=== PATIENT | female | born 1975 | race Caucasian/White ===

== ENCOUNTER 2019-08-31 16:01 | Emergency (ER) | payer SELFPAY ==
[~2019-08-31] VITALS: Ht 152.4 cm; Wt 68.2 kg
[2019-08-31 16:32] VITALS: BP 118/72
--- NOTE | 2019-08-31 16:38 | NUR ---
PT AMBULATED TO BED 11 WITH STEADY GAIT.
--- NOTE | 2019-08-31 16:40 | NUR ---
44 Y/O FEMALE C/O FEVER, SORE THROAT, AND COUGH X 3 DAYS. PT STATES PRODUCTIVE COUGH WITH GREEN SPUTUM. 10/10 SHARP PAIN TO THROAT, STATES INCREASED PAIN WITH SWALLOWING. BILATERAL EAR PAIN, DENIES DRAINAGE. +NAUSEA, DENIES VOMITING/DIARRHEA. RR EVEN AND UNLABORED, NO ACCESSORY MUSCLE USE. STATES SHE TOOK NYQUIL AT 1000 WITH NO RELIEF. LMP 07/30/2019. VSS. FAMILY AT BEDSIDE MEDHX: DENIES ALLERGIES: STEVE
--- NOTE | 2019-08-31 16:50 | NUR ---
DR FIELD AT BEDSIDE EXAMINING PT
[2019-08-31] MEDS ORDERED: PROMETH/CODEINE 6.25-10MG/5ML 5 ML UDC PO ONE (16:55)
[2019-08-31] MEDS ORDERED: KETOROLAC 60 MG/2 ML VIAL IM ONE (16:55)
--- NOTE | 2019-08-31 16:59 | NUR ---
INFLUENZA SWAB COLLECTED.
--- NOTE | 2019-08-31 17:04 | NUR ---
2ND PROMETHAZINE PULLED FROM [email or web address]. STATED TO ONLY PULL ONE, SECOND ONE PULLED FROM MEDICATION DISPENSER. PT RECEIVED FULL DOSE.
--- NOTE | 2019-08-31 17:26 | NUR ---
DECREASE IN PAIN AFTER TORADOL IM GIVEN. 11/23 PAIN TO THROAT.
[2019-08-31 18:03] VITALS: BP 120/73
--- NOTE | 2019-08-31 18:04 | NUR ---
Patient discharged with v/s stable. Written and verbal after care instructions given and explained. Patient alert, oriented and verbalized understanding of instructions. Ambulatory with steady gait. All questions addressed prior to discharge. ID band removed. Patient advised to follow up with PMD. Rx of PROMETHAZINE WITH CODEINE, TAMIFLU, AND MOTRIN given. Patient educated on indication of medication including possible reaction and side effects. Opportunity to ask questions provided and answered.
== END 2019-08-31 18:04 | disposition home or self-care (01) ==
LOC: MED 16:01
DX: J10.1 Influenza due to other identified influenza virus with other respiratory manifestations (principal); F17.210 Nicotine dependence, cigarettes, uncomplicated
CPT/HCPCS: 71045; 87804; 96372; 99284; J1885; Q0092

== ENCOUNTER 2022-08-07 03:43 | Emergency (ER) | payer BC, MEDICAID ==
[~2022-08-07] VITALS: Ht 152.4 cm; Wt 74.8 kg
[2022-08-07 03:54] VITALS: BP 113/74
--- NOTE | 2022-08-07 03:59 | NUR ---
TO LOBBY A/W BED AMBULATORY
--- NOTE | 2022-08-07 04:43 | NUR ---
Dr. Shrestha examining patient.
[2022-08-07] MEDS ORDERED: AMOX1TAB8 PO (04:46)
[2022-08-07 04:48] VITALS: BP 113/74
--- NOTE | 2022-08-07 04:48 | NUR ---
D/C BY .Patient discharged with v/s stable. Written and verbal after care instructions given and explained. Patient alert, oriented and verbalized understanding of instructions. Ambulatory with steady gait. All questions addressed prior to discharge. ID band removed. Patient advised to follow up with PMD. Rx of AMOX-CLAV given. Patient educated on indication of medication including possible reaction and side effects. Opportunity to ask questions provided and answered.
== END 2022-08-07 04:49 | disposition home or self-care (01) ==
LOC: MED 03:43
DX: J20.8 Acute bronchitis due to other specified organisms (principal); B96.89 Other specified bacterial agents as the cause of diseases classified elsewhere; Z79.899 Other long term (current) drug therapy
CPT/HCPCS: 99283

== ENCOUNTER 2022-10-23 10:43 | Emergency (ER) | payer MEDICAID ==
[~2022-10-23] VITALS: Ht 157.5 cm; Wt 74.8 kg
[~2022-10-23 10:43] MED LIST: AMOX1TAB8 PO
[2022-10-23 11:12] VITALS: BP 123/79
--- NOTE | 2022-10-23 12:04 | NUR ---
47 Y/O FEMALE BIB SELF C/O VAGINAL ITCHING AND BURNING URINATION S/P HAVING UNRPOTECTED SEX WITH A NEW PARTNERXLAST MONDAY. DENIES ANY WARTS OR VESICLES,STATES CLEAR VAGINAL DISCHARGE, DENIES ANY VAGINAL BLEEDING OR PAIN. NO OTHER SEXUAL CONTACT. NKA PMH: DENIES
--- NOTE | 2022-10-23 12:04 | NUR ---
WALKED TO BED 12
[2022-10-23 12:07] LABS: APPEARANCE,URINE CLEAR (CLEAR); BILIRUBIN,URINE NEGATIVE (NEGATIVE); BLOOD, URINE NEGATIVE (NEGATIVE); COLOR,URINE YELLOW (YELLOW); LEUKOCYTE ESTERASE ,URINE 2+ (NEGATIVE); NITRITE, URINE NEGATIVE (NEGATIVE); PH,URINE 5.5 (5.0-9.0); UGLUCOSE NEGATIVE (NEGATIVE)
[2022-10-23 12:24] LABS: RBC,URINE 0-5 /HPF (0-5)
[2022-10-23 12:36] LABS: BASOPHILS % (AUTO) 0.6 % (0.0-2.0); EOSINOPHILS % (AUTO) 0.5 % (0.0-4.0); HEMATOCRIT 40.8 % (36-48); HEMOGLOBIN 13.8 g/dL (12.0-16.0); LYMPHOCYTES # (AUTO) 1.8 K/uL (2.5-16.5); LYMPHOCYTES % (AUTO) 20.8 % (20.5-51.1); MEAN CORPUSCULAR HEMOGLOBIN 30 pg (27-31); MEAN CORPUSCULAR HGB CONC 34 g/dL (33-37); MEAN CORPUSCULAR VOLUME 88.8 fL (80-94); MONOCYTES # (AUTO) 0.7 K/uL (0.8-1.0); MONOCYTES % (AUTO) 7.8 % (1.7-9.3); NEUTROPHILS # (AUTO) 5.9 K/uL (1.8-7.7); NEUTROPHILS % (AUTO) 70.3 % (42.2-75.2); PLATELET COUNT (AUTO) 333 K/uL (140-450); RED BLOOD CELL COUNT(AUTO) 4.59 MIL/uL (4.20-5.40); RED CELL DISTRIBUTION WIDTH 14.1 % (11.6-13.7); WHITE BLOOD COUNT (AUTO) 8.4 K/uL (4.8-10.8)
[2022-10-23 12:54] LABS: ALBUMIN 3.1 g/dL (3.4-5.0); ANION GAP 10.1 (8-16); CARBON DIOXIDE 26.9 mmol/L (21-32); CREATININE 0.7 mg/dL (0.6-1.3); TOTAL BILIRUBIN 0.4 mg/dL (0.0-1.0)
--- NOTE | 2022-10-23 13:35 | NUR ---
Female Process Mold Technician accompanied female patient for Pelvic Exam.
[2022-10-23] MEDS ORDERED: cephALEXin 500 MG CAP PO ONE (13:50)
[2022-10-23] MEDS ORDERED: metroNIDAZOLE 500 MG TAB PO ONE (13:50)
[2022-10-23] MEDS ORDERED: METR-435 PO (13:50)
[2022-10-23] MEDS ORDERED: CEPH-588 PO (13:50)
[2022-10-23] MEDS ORDERED: HYD2.5O TP ×3 (13:52→13:54)
--- NOTE | 2022-10-23 14:03 | NUR ---
Patient discharged with v/s stable. Written and verbal after care instructions given and explained. Patient alert, oriented and verbalized understanding of instructions. Ambulatory with steady gait. All questions addressed prior to discharge. ID band removed. Patient advised to follow up with PMD. Rx of KELFEX, METRONIDAZOLE, HYDROCORTISONE 2.5% given. Patient educated on indication of medication including possible reaction and side effects. Opportunity to ask questions provided and answered.
== END 2022-10-23 14:03 | disposition home or self-care (01) ==
LOC: MED 10:43
DX: N76.0 Acute vaginitis (principal); N39.0 Urinary tract infection, site not specified; Z79.899 Other long term (current) drug therapy
CPT/HCPCS: 36415; 80053; 81001; 81025; 83690; 85025; 87070; 87086; 87110; 87210; 87299; 87491; 99284

== ENCOUNTER 2022-11-17 18:45 | Emergency (ER) | payer MEDICAID ==
[~2022-11-17] VITALS: Ht 157.5 cm; Wt 65.8 kg
[~2022-11-17 18:45] MED LIST changes: +CEPH-588 PO; +HYD2.5O TP; +METR-435 PO
[2022-11-17 18:50] VITALS: BP 126/70
--- NOTE | 2022-11-17 19:00 | NUR ---
PT TAKEN TO BED 7
[2022-11-17] MEDS ORDERED: DIPH25TA39 PO ×2 (19:10→19:48)
[2022-11-17] MEDS ORDERED: PRED20TA5 PO ×2 (19:10→19:48)
[2022-11-17 19:20] VITALS: BP 126/70
--- NOTE | 2022-11-17 19:52 | NUR ---
Patient discharged with v/s stable. Written and verbal after care instructions given and explained. Patient alert, oriented and verbalized understanding of instructions. Ambulatory with steady gait. All questions addressed prior to discharge. ID band removed. Patient advised to follow up with PMD. Rx of BENADRYL AND DELTASONE given. Opportunity to ask questions provided and answered.
== END 2022-11-17 19:52 | disposition home or self-care (01) ==
LOC: MED 18:45
DX: R21 Rash and other nonspecific skin eruption (principal); L29.9 Pruritus, unspecified; Z79.899 Other long term (current) drug therapy; Z79.2 Long term (current) use of antibiotics
CPT/HCPCS: 99283

== ENCOUNTER 2023-01-19 10:02 | Emergency (ER) | payer MEDICAID ==
[~2023-01-19] VITALS: Ht 152.4 cm; Wt 75.7 kg
[~2023-01-19 10:02] MED LIST changes: +DIPH25TA39 PO; +PRED20TA5 PO
[2023-01-19 10:20] VITALS: BP 130/80; PULSE 82; RESP 18; TEMP 98.1; O2SAT 98
--- NOTE | 2023-01-19 11:15 | NUR ---
47 Y/O FEMALE BIB SELF, PATIENT PRESENTS TO ED WITH C/O BROWN VAGINAL DISCHARGE WITH COUGH, SORE THROAT AND SUBJECTIVE FEVER FOR 3 DAYS. PT STATES SHE WAS PRESCRIBED TOPICAL CREAM WITH NO RELIEF FOR VAGINAL RASH. DENIES N/V/D; SKIN IS PINK/WARM/DRY; AAOX4 WITH EVEN AND STEADY GAIT; LUNGS CLEAR BL; HR EVEN AND REGULAR; PATIENT STATES PAIN OF 0/10 AT THIS TIME; VSS; PATIENT POSITIONED FOR COMFORT; HOB ELEVATED; BEDRAILS UP X2; BED DOWN. ER MD MADE AWARE OF PT STATUS. CALL LIGHT WITHIN REACH. PMH: DENIES ALLERGY: UNSURE OF ANTIBIOTIC
--- NOTE | 2023-01-19 11:16 | NUR ---
PT REFUSING WET [place] SWAB FROM MALE MD AND REQUESTING TO SWAB HERSELF. PT INSTRUCTED ON HOW TO SWAB, SAMPLE COLLECTED AND SENT TO LAB
--- NOTE | 2023-01-19 11:19 | NUR ---
URINE GIVEN TO PHLEB
[2023-01-19 11:33] LABS: APPEARANCE,URINE CLEAR (CLEAR); BILIRUBIN,URINE NEGATIVE (NEGATIVE); BLOOD, URINE 1+ (NEGATIVE); COLOR,URINE YELLOW (YELLOW); LEUKOCYTE ESTERASE ,URINE 3+ (NEGATIVE); NITRITE, URINE NEGATIVE (NEGATIVE); PH,URINE 6.5 (5.0-9.0); UGLUCOSE NEGATIVE (NEGATIVE)
[2023-01-19] MEDS ORDERED: MUC600 PO (12:10)
[2023-01-19] MEDS ORDERED: BENZ-300 PO (12:10)
[2023-01-19] MEDS ORDERED: METR-435 PO (12:10)
[2023-01-19 12:19] VITALS: BP 130/80; PULSE 82; RESP 18; TEMP 98.1; O2SAT 98
--- NOTE | 2023-01-19 12:20 | NUR ---
Patient discharged with v/s stable. Written and verbal after care instructions given and explained. Patient verbalized understanding. Ambulatory with steady gait. All questions addressed prior to discharge. Advised to follow up with PMD.
== END 2023-01-19 12:20 | disposition home or self-care (01) ==
LOC: MED 10:02
DX: A59.01 Trichomonal vulvovaginitis (principal); J06.9 Acute upper respiratory infection, unspecified; B97.89 Other viral agents as the cause of diseases classified elsewhere; R05.9 Cough, unspecified; Z79.899 Other long term (current) drug therapy
CPT/HCPCS: 81001; 81025; 87086; 87210; 99283